=== PATIENT | female | born 1950 | race Caucasian/White ===

== ENCOUNTER 2016-09-30 13:39 | Day surgery (SDC) | payer MEDICARE, OTHER ==
--- NOTE | ~2016-09-30 | EGD ---
EGD REPORT [facility] [address] [address] NAME: ALFREDA BRAGA : [birth year] STATUS : [facility]#: [id number] AGE: 66 ADM/REG DATE : 09/30/16 MR#: [id number] REPORT SERV DATE: 11/01/16 DICTATED BY: MAKEDA MARRERO DATE: 11/01/16 REPORT STATUS : Draft [facility]ANS[facility]IBED [facility]: [facility] DATE: 11/01/16 Endoscopy Center Patient Name: Alfreda Braga Date of : 1950 Attending MD: MAKEDA MARRERO MD Procedure Date No Time: 09/30/2016 Procedure: Upper GI endoscopy Indications: Dysphagia Referring MD: Yash Ferguson Medicines: See the Anesthesia note for documentation of the administered medications Complications: No immediate complications. Procedure: Pre-Anesthesia Assessment: - ASA Grade Assessment: III - A patient with severe systemic disease. After obtaining informed consent, the endoscope was passed under direct vision. Throughout the procedure, the patient's blood pressure, pulse, and oxygen saturations were monitored continuously. The GIF H190 [id number] was introduced through the mouth, and advanced to the second part of duodenum. The upper GI endoscopy was accomplished without difficulty. The patient tolerated the procedure well. Findings: The examined duodenum was normal. Moderate inflammation was found in the gastric antrum. Biopsies were taken with a cold forceps for histology. Wide open pylorus The cardia and gastric fundus were normal on retroflexion. A small hiatus hernia was present. A guidewire was placed and the scope was withdrawn. Dilation was performed with a Savary dilator with no resistance at 45 Fr and no resistance at 48 Fr. Normal mucosa was found in the lower third of the esophagus. Biopsies were taken with a cold forceps for histology. Impression: - Normal examined duodenum. - Gastritis. Biopsied. - Wide open pylorus - Hiatus hernia. Dilated. - Normal mucosa was found in the lower third of the esophagus. Biopsied. Recommendation: - Patient has a contact number available for emergencies. The signs and symptoms of potential delayed EGD REPORT [address] [place]. [address] NAME: ALFREDA BRAGA : [birth year] STATUS : [facility] PAT#: [id number] AGE: 66 ADM/REG DATE : 09/30/16 MR#: [id number] REPORT SERV DATE: 11/01/16 DICTATED BY: MAKEDA MARRERO DATE: 11/01/16 REPORT STATUS : Draft TRANSCRIBED BY: [employer] DATE: 11/01/16 complications were discussed with the patient. Return to normal activities tomorrow. Written discharge instructions were provided to the patient. - Continue present medications. - FOR YOUR BIOPSY RESULTS: Please go to [email or web address] and register to receive your results via the portal. Your biopsy results will be posted there in about 7 to 10 days. IF you do not see result in 10 days, call office. - Clear liquids today, soft diet tomorrow, regular diet the following day Procedure Code(s): --- Professional --- 63563, Esophagogastroduodenoscopy, flexible, transoral; with insertion of guide wire followed by passage of dilator(s) through esophagus over guide wire 36432, Esophagogastroduodenoscopy, flexible, transoral; with biopsy, single or multiple Diagnosis Code(s): --- Professional --- K29.70, Gastritis, unspecified, without bleeding K44.9, Diaphragmatic hernia without obstruction or gangrene R13.10, Dysphagia, unspecified CPT copyright 2013 [employer]. All rights reserved. The codes documented in this report are preliminary and upon final canoe inspector review may be revised to meet current compliance requirements. Makeda Marrero MD MAKEDA MARRERO MD 09/30/2016 2:58 PM This report has been signed electronically. Number of Addenda: 0 Note Initiated On: 09/30/2016 2:39 PM Scope Withdrawal Time 0 hours 0 minutes 0 seconds [id number] [place] [place] [id number]
--- NOTE | ~2016-09-30 | EGD ---
EGD REPORT [facility] [address] [address] NAME: ALFREDA BRAGA : [birth year] STATUS : [facility]#: [id number] AGE: 66 ADM/REG DATE : 09/30/16 MR#: [id number] REPORT SERV DATE: 11/01/16 DICTATED BY: MAKEDA MARRERO DATE: 11/01/16 REPORT STATUS : Draft [facility] DATE: 11/01/16 Endoscopy Center Patient Name: Alfreda Braga Date of : 1950 Attending MD: MAKEDA MARRERO MD Procedure Date No Time: 09/30/2016 Procedure: Upper GI endoscopy Indications: Dysphagia Referring MD: Yash Ferguson Medicines: See the Anesthesia note for documentation of the administered medications Complications: No immediate complications. Procedure: Pre-Anesthesia Assessment: - ASA Grade Assessment: III - A patient with severe systemic disease. After obtaining informed consent, the endoscope was passed under direct vision. Throughout the procedure, the patient's blood pressure, pulse, and oxygen saturations were monitored continuously. The GIF H190 [id number] was introduced through the mouth, and advanced to the second part of duodenum. The upper GI endoscopy was accomplished without difficulty. The patient tolerated the procedure well. Findings: The examined duodenum was normal. Moderate inflammation was found in the gastric antrum. Biopsies were taken with a cold forceps for histology. Wide open pylorus The cardia and gastric fundus were normal on retroflexion. A small hiatus hernia was present. A guidewire was placed and the scope was withdrawn. Dilation was performed with a Savary dilator with no resistance at 45 Fr and no resistance at 48 Fr. Normal mucosa was found in the lower third of the esophagus. Biopsies were taken with a cold forceps for histology. Impression: - Normal examined duodenum. - Gastritis. Biopsied. - Wide open pylorus - Hiatus hernia. Dilated. - Normal mucosa was found in the lower third of the esophagus. Biopsied. Recommendation: - Patient has a contact number available for emergencies. The signs and symptoms of potential delayed EGD REPORT [address] [place]. [address] NAME: ALFREDA BRAGA : [birth year] STATUS : [facility] PAT#: [id number] AGE: 66 ADM/REG DATE : 09/30/16 MR#: [id number] REPORT SERV DATE: 11/01/16 DICTATED BY: MAKEDA MARRERO DATE: 11/01/16 REPORT STATUS : Draft TRANSCRIBED BY: [employer] DATE: 11/01/16 complications were discussed with the patient. Return to normal activities tomorrow. Written discharge instructions were provided to the patient. - Continue present medications. - FOR YOUR BIOPSY RESULTS: Please go to [email or web address] and register to receive your results via the portal. Your biopsy results will be posted there in about 7 to 10 days. IF you do not see result in 10 days, call office. - Clear liquids today, soft diet tomorrow, regular diet the following day Procedure Code(s): --- Professional --- 18334, Esophagogastroduodenoscopy, flexible, transoral; with insertion of guide wire followed by passage of dilator(s) through esophagus over guide wire 69606, Esophagogastroduodenoscopy, flexible, transoral; with biopsy, single or multiple Diagnosis Code(s): --- Professional --- K29.70, Gastritis, unspecified, without bleeding K44.9, Diaphragmatic hernia without obstruction or gangrene R13.10, Dysphagia, unspecified CPT copyright 2013 [employer]. All rights reserved. The codes documented in this report are preliminary and upon assault amphibious vehicle officer review may be revised to meet current compliance requirements. aMkeda Marrero MD MAKEDA MARRERO MD 09/30/2016 2:58 PM This report has been signed electronically. Number of Addenda: 0 Note Initiated On: 09/30/2016 2:39 PM Scope Withdrawal Time 0 hours 0 minutes 0 seconds [id number] [place] [place] [phone]
[~2016-09-30 13:39] MED LIST: PROTONIX PO; SUCR PO; VENTOLIN HFA INH
[2016-10-21] MEDS ORDERED: ADVAIR250 INH (11:46)
[2016-10-27] MEDS ORDERED: STIOLTO RESPIMAT4 GM INH (15:59)
[2016-10-27] MEDS ORDERED: ATEN50 PO (16:00)
[2016-10-27] MEDS ORDERED: ATEN25 PO (16:01)
[2016-10-27] MEDS ORDERED: MAX25 PO (16:02)
[2016-10-27] MEDS ORDERED: CO Q-10100 MG PO (16:02)
[2016-10-27] MEDS ORDERED: LIPITOR20 PO (16:04)
== END 2016-09-30 23:59 | disposition home or self-care (01) ==
LOC: DMU 13:39
PROVIDERS: Internal Medicine Gastroenterology
PROC: 0D758ZZ Dilation of Esophagus, Via Natural or Artificial Opening Endoscopic (ICD-10-PCS; 2016-09-30)
PROC: 0DB68ZX Excision of Stomach, Via Natural or Artificial Opening Endoscopic, Diagnostic (ICD-10-PCS; principal; 2016-09-30 15:00)
PROC: 0DB38ZX Excision of Lower Esophagus, Via Natural or Artificial Opening Endoscopic, Diagnostic (ICD-10-PCS; 2016-09-30 15:00)
DX: K25.9 Gastric ulcer, unspecified as acute or chronic, without hemorrhage or perforation (principal); K44.9 Diaphragmatic hernia without obstruction or gangrene; J44.9 Chronic obstructive pulmonary disease, unspecified; M19.90 Unspecified osteoarthritis, unspecified site; Z90.710 Acquired absence of both cervix and uterus; Z90.49 Acquired absence of other specified parts of digestive tract; Z86.73 Personal history of transient ischemic attack (TIA), and cerebral infarction without residual deficits; Z88.0 Allergy status to penicillin; Z91.041 Radiographic dye allergy status; Z79.899 Other long term (current) drug therapy
CPT/HCPCS: 88305; 88342; J2405

== ENCOUNTER 2016-10-28 07:10 | Day surgery (SDC) | payer MEDICARE, OTHER ==
--- NOTE | ~2016-10-28 | EGD ---
EGD REPORT [facility] [address] [address] NAME: ALFREDA BRAGA : 52 STATUS : [facility] PAT#: [id number] AGE: 66 ADM/REG DATE : 10/28/16 MR#: [id number] REPORT SERV DATE: 10/28/16 DICTATED BY: MAKEDA MARRERO DATE: 10/28/16 REPORT STATUS : Draft [facility] DATE: 10/28/16 Endoscopy Center Patient Name: Alfreda Braga Date of : 1950 Attending MD: MAKEDA MARRERO MD Procedure Date No Time: 10/28/2016 Procedure: Colonoscopy Indications: Screening in patient at increased risk: Colorectal cancer in mother before age 60, Last colonoscopy: 2003 Referring MD: UJDI LONDON Medicines: See the Anesthesia note for documentation of the administered medications Complications: No immediate complications. Procedure: Pre-Anesthesia Assessment: - ASA Grade Assessment: III - A patient with severe systemic disease. After I obtained informed consent, the scope was passed under direct vision. Throughout the procedure, the patient's blood pressure, pulse, and oxygen saturations were monitored continuously. The PCF [id number] was introduced through the anus and advanced to the terminal ileum, with identification of the appendiceal orifice and IC valve. The colonoscopy was performed without difficulty. The patient tolerated the procedure well. The quality of the bowel preparation was adequate. Findings: The perianal and digital rectal examinations were normal. Internal hemorrhoids were found during retroflexion and were small. A sessile polyp was found in the descending colon. The polyp was small in size. The polyp was removed with a cold biopsy forceps. Resection and retrieval were complete. A sessile polyp was found in the rectum. The polyp was small in size. The polyp was removed with a cold biopsy forceps. Resection and retrieval were complete. A sessile polyp was found in the sigmoid colon. The polyp was small in size. The polyp was removed with a cold biopsy forceps. Resection and retrieval were complete. Impression: - Internal hemorrhoids. - One small polyp in the descending colon. Resected and retrieved. - One small polyp in the rectum. Resected and retrieved. - One small polyp in the sigmoid colon. Resected and retrieved. EGD REPORT [address] [address] NAME: ALFREDA BRAGA : [birth year] STATUS : [facility] PAT#: [id number] AGE: 66 ADM/REG DATE : 10/28/16 MR#: [id number] REPORT SERV DATE: 10/28/16 DICTATED BY: MAKEDA MARRERO DATE: 10/28/16 REPORT STATUS : Draft TRANSCRIBED BY: [employer] DATE: 10/28/16 Recommendation: - Patient has a contact number available for emergencies. The signs and symptoms of potential delayed complications were discussed with the patient. Return to normal activities tomorrow. Written discharge instructions were provided to the patient. - Regular diet. - Continue present medications. - Repeat colonoscopy for surveillance based on pathology results. - FOR YOUR BIOPSY RESULTS: Please go to [email or web address] and register to receive your results via the portal. Your biopsy results will be posted there in about 7 to 10 days. IF you do not see result in 10 days, call office. Procedure Code(s): --- Professional --- 48906, Colonoscopy, flexible, proximal to splenic flexure; with biopsy, single or multiple Diagnosis Code(s): --- Professional --- K64.8, Other hemorrhoids D12.5, Benign neoplasm of sigmoid colon K62.1, Rectal polyp D12.4, Benign neoplasm of descending colon Z12.11, Encounter for screening for malignant neoplasm of colon Z80.0, Family history of malignant neoplasm of digestive organs CPT copyright 2013 [employer]. All rights reserved. The codes documented in this report are preliminary and upon medical billing coder review may be revised to meet current compliance requirements. Makeda Marrero MD MAKEDA MARRERO MD 10/28/2016 9:16 AM This report has been signed electronically. Number of Addenda: 0 Note Initiated On: 10/28/2016 8:45 AM Scope Withdrawal Time 0 hours 11 minutes 28 seconds [address] [address]
[~2016-10-28 07:10] MED LIST changes: +ADVAIR250 INH; +ATEN25 PO; +ATEN50 PO; +CO Q-10100 MG PO; +LIPITOR20 PO; +MAX25 PO; +STIOLTO RESPIMAT4 GM INH
== END 2016-10-28 23:59 | disposition home or self-care (01) ==
LOC: DMU 07:10
PROVIDERS: Internal Medicine Gastroenterology
PROC: 0DBN8ZZ Excision of Sigmoid Colon, Via Natural or Artificial Opening Endoscopic (ICD-10-PCS; 2016-10-28)
PROC: 0DBP8ZZ Excision of Rectum, Via Natural or Artificial Opening Endoscopic (ICD-10-PCS; 2016-10-28)
PROC: 0DBM8ZZ Excision of Descending Colon, Via Natural or Artificial Opening Endoscopic (ICD-10-PCS; principal; 2016-10-28 09:30)
DX: Z12.11 Encounter for screening for malignant neoplasm of colon (principal); D12.4 Benign neoplasm of descending colon; D12.5 Benign neoplasm of sigmoid colon; K62.1 Rectal polyp; K64.8 Other hemorrhoids; Z80.0 Family history of malignant neoplasm of digestive organs; J45.909 Unspecified asthma, uncomplicated; J44.9 Chronic obstructive pulmonary disease, unspecified; R13.10 Dysphagia, unspecified; K21.9 Gastro-esophageal reflux disease without esophagitis; I10 Essential (primary) hypertension; Z86.73 Personal history of transient ischemic attack (TIA), and cerebral infarction without residual deficits; Z88.0 Allergy status to penicillin; Z91.041 Radiographic dye allergy status; Z79.899 Other long term (current) drug therapy
CPT/HCPCS: 88305; J2405